=== PATIENT | male | born 1975 | race Caucasian/White ===

== ENCOUNTER 2018-01-22 17:25 | Emergency (ER) | payer BC ==
[2018-01-22] MEDS ORDERED: KETOROLAC TROMETHAMINE INJ/PF 30 MG/1 ML SDV IV ONE (17:53)
[2018-01-22] MEDS ORDERED: METHYLPREDNISOLONE INJ 125 MG/2 ML SDV IV ONE (17:53)
[2018-01-22] MEDS ORDERED: NORMAL SALINE 1000 ML 1,000 ML IV ONE (17:53)
--- NOTE | 2018-01-22 17:55 | ER Document Report ---
ED Medical Screen (RME) - General Chief Complaint: Dental Injury Stated Complaint: TOOTH PAIN Time Seen by Provider: 01/22/18 17:53 Notes: 42-year-old male patient had a left lower second molar pulled 2 days ago. He reports third molars never erupted. Since then he has had pain and swelling. He is unable to open his mouth at this time. The dentist sent him here to rule out David's angina due to his symptoms and findings in the office. I have greeted and performed a rapid initial assessment of this patient. A comprehensive ED assessment and evaluation of the patient, analysis of test results and completion of the medical decision making process will be conducted by additional ED providers. TRAVEL OUTSIDE OF THE [place] IN LAST 30 DAYS: No - Related Data Allergies/Adverse Reactions: codeine Allergy (Verified 01/22/18 17:31) Past Medical History - Social History Chew tobacco use (# tins/day): No Frequency of alcohol use: None Drug Abuse: None Renal/ Medical History: Denies: Hx Peritoneal Dialysis Physical Exam - Vital signs Vitals: Temp Pulse Resp BP Pulse Ox 97.7 F 64 18 134/91 H 99 01/22/18 17:31 01/22/18 17:31 01/22/18 17:31 01/22/18 17:31 01/22/18 17:31 Course - Vital Signs Vital signs: Temp Pulse Resp BP Pulse Ox 97.7 F 64 18 134/91 H 99 01/22/18 17:31 01/22/18 17:31 01/22/18 17:31 01/22/18 17:31 01/22/18 17:31
[2018-01-22 18:45] LABS: ABSOLUTE LYMPHOCYTES (AUTO) 1.1 10^3/uL (0.5-4.7); ABSOLUTE MONOCYTES (AUTO) 1.5 10^3/uL (0.1-1.4); BASOPHILS % (AUTO) 0.2 % (0-2); EOSINOPHILS % (AUTO) 0.1 % (0-6); HEMATOCRIT 43.4 % (37.9-51.0); HEMOGLOBIN 14.7 g/dL (13.5-17.0); LYMPHOCYTES % (AUTO) 10.6 % (13-45); MEAN CORPUSCULAR HEMOGLOBIN 27.3 pg (27.0-33.4); MEAN CORPUSCULAR HGB CONC 33.9 g/dL (32.0-36.0); MEAN CORPUSCULAR VOLUME 81 fl (80-97); MONOCYTES % (AUTO) 13.8 % (3-13); PLATELET COUNT 333 10^3/uL (150-450); RED BLOOD COUNT 5.38 10^6/uL (4.35-5.55); RED CELL DISTRIBUTION WIDTH 14.1 % (11.5-14.0); SEGMENTED NEUTROPHILS % (AUTO) 75.3 % (42-78); TOTAL CELLS COUNTED % (AUTO) 100 %; WHITE BLOOD COUNT 10.6 10^3/uL (4.0-10.5)
[2018-01-22 19:06] LABS: ALANINE AMINOTRANSFERASE 225 U/L (21-72); ALBUMIN 4.2 g/dL (3.5-5.0); ALKALINE PHOSPHATASE 213 U/L (38-126); ANION GAP 15 (5-19); ASPARTATE AMINO TRANSFERASE 80 U/L (17-59); BILIRUBIN,DIRECT 0.5 mg/dL (0.0-0.4); BILIRUBIN,TOTAL 0.6 mg/dL (0.2-1.3); BLOOD UREA NITROGEN 17 mg/dL (7-20); CALCIUM 9.4 mg/dL (8.4-10.2); CARBON DIOXIDE 25 mmol/L (22-30); CHLORIDE 99 mmol/L (98-107); GLUCOSE 127 mg/dL (75-110); POTASSIUM 4.3 mmol/L (3.6-5.0); SODIUM 139.2 mmol/L (137-145); TOTAL PROTEIN 7.4 g/dL (6.3-8.2)
--- NOTE | 2018-01-22 19:12 | ER Document Report ---
ED General - General Chief Complaint: Dental Injury Stated Complaint: TOOTH PAIN Time Seen by Provider: 01/22/18 17:53 Notes: Patient is a 42 year old male with medical history as recorded who presents with 1 week of progressively worsening pain and swelling to the left side of his face, jaw and neck. Patient states that he had a tooth extraction performed 2 days ago for an infected left mandibular molar and that the swelling and pain has actually worsened since that time. He does described as a dull, constant, throbbing pain worsened by any attempts at talking, eating or drinking. He has been taking amoxicillin that was prescribed by his dentist. He reports that when he followed up with the dentist today he was referred to the emergency department for further evaluation due to the worsening of the swelling. He denies any history of similar symptoms in the past. He denies any difficulty breathing or swallowing his oral secretions. He has no history of similar symptoms in the past. TRAVEL OUTSIDE OF THE [place] IN LAST 30 DAYS: No - Related Data Allergies/Adverse Reactions: codeine Allergy (Verified 01/22/18 17:31) Home Medications: Bystolic 5mg daily Past Medical History - General Information source: Patient - Social History Smoking Status: Never Smoker Chew tobacco use (# tins/day): No Frequency of alcohol use: None Drug Abuse: None Lives with: Spouse/Significant other Family History: Reviewed & Not Pertinent Patient has suicidal ideation: No Patient has homicidal ideation: No - Past Medical History Cardiac Medical History: Reports: Hx Hypertension Renal/ Medical History: Denies: Hx Peritoneal Dialysis Past Surgical History: Reports: Hx Abdominal Surgery - gastric bypass, Hx Orthopedic Surgery Review of Systems - Review of Systems Notes: Constitutional: Negative for fever. HENT: Positive for facial pain and swelling Eyes: Negative for visual changes. Cardiovascular: Negative for chest pain. Respiratory: Negative for shortness of breath. Gastrointestinal: Negative for abdominal pain, vomiting or diarrhea. Genitourinary: Negative for dysuria. Musculoskeletal: Negative for back pain. Skin: Negative for rash. Neurological: Negative for headaches, weakness or numbness. 10 point ROS negative except as marked above and in HPI. Physical Exam - Vital signs Vitals: Temp Pulse Resp BP Pulse Ox 97.7 F 64 18 134/91 H 99 01/22/18 17:31 01/22/18 17:31 01/22/18 17:31 01/22/18 17:31 01/22/18 17:31 Interpretation: Normal Notes: PHYSICAL EXAMINATION: GENERAL: Appears moderately uncomfortable but in no acute distress HEAD: Atraumatic, normocephalic. EYES: Pupils equal round and reactive to light, extraocular movements intact, sclera anicteric, conjunctiva are normal. ENT: nares patent, notable trismus. There is left-sided subsegmental lymphadenopathy that is tender to palpation. The soft tissues around and underneath the mandible are diffusely swollen and tender to palpation. There is no evidence of swelling to the floor of the mouth. No elevation of the tongue. No muffled voice. NECK: Normal range of motion, no cervical lymphadenopathy, no stridor LUNGS: Breath sounds clear to auscultation bilaterally and equal. No wheezes rales or rhonchi. HEART: Regular rate and rhythm without murmurs ABDOMEN: Soft, nontender, normoactive bowel sounds. No guarding, no rebound. No masses appreciated. EXTREMITIES: Normal range of motion, no pitting or edema. No cyanosis. NEUROLOGICAL: No focal neurological deficits. Moves all extremities spontaneously and on command. PSYCH: Normal mood, normal affect. SKIN: Warm, Dry, normal turgor, no rashes or lesions noted. Course - Re-evaluation Re-evalutation: 01/22/18 19:10 Patient presents with trismus, left-sided facial pain and swelling after having tooth #19 pulled 2 days ago. Patient's vitals are within normal limits he has no difficulty swallowing or secretions, no complaints of shortness of breath, no evidence of David's angina on examination although he does have significant trismus on examination. No muffled speech with talking. No clinical suspicion overall for a retropharyngeal or David's angina although given the patient's degree of trismus and is worsening despite the source of infection being pulled and antibiotics will obtain CT of the face and neck to further exclude. If this is unremarkable will recommend outpatient steroid course, antibiotics and follow-up. 01/22/18 20:37 CT does not demonstrate any evidence of an acute fluid collection to suggest an abscess or David angina. Findings are consistent with patient clinically appears to have which is postsurgical inflammation to multiple areas beneath the left mandible and affected soft tissues. I will broaden the patient's antibiotics to clindamycin, start a 5 day course of steroids, and have him follow-up with his dentist as scheduled. He is able to tolerate fluid intake and continues to be without any breathing difficulties. At this time will discharge with return precautions and follow-up recommendations. Verbal discharge instructions given a the bedside and opportunity for questions given. Medication warnings reviewed. Patient is in agreement with this plan and has verbalized understanding of return precautions and the need for primary care follow-up in the next 24-72 hours. - Vital Signs Vital signs: Temp Pulse Resp BP Pulse Ox 98.3 F 70 16 143/78 H 96 01/22/18 19:09 01/22/18 21:00 01/22/18 21:00 01/22/18 21:00 01/22/18 21:00 - Laboratory Result Diagrams: 01/22/18 18:27 01/22/18 18:27 Laboratory results interpreted by me: 01/22/18 01/22/18 18:27 18:27 WBC 10.6 H RDW 14.1 H Lymphocytes % 10.6 L Monocytes % 13.8 H Absolute Monocytes 1.5 H Glucose 127 H Direct Bilirubin 0.5 H AST 80 H ALT 225 H Alkaline Phosphatase 213 H - Diagnostic Test Radiology reviewed: Reports reviewed Discharge - Discharge Clinical Impression: Trismus, Neck pain Muscle inflammation Qualifiers: Myositis type: unspecified type Myositis location: unspecified site Qualified Code(s): M60.9 - Myositis, unspecified Condition: Good Disposition: HOME, SELF-CARE Additional Instructions: Your CT scan does not show any evidence of an abscess or the diagnosis that your dentist was concerned about. It does show significant inflammation which is what we suspected based on your history. You are being started on a course of steroids to help reduce some of the inflammation. Please discontinue amoxicillin and begin taking clindamycin for the next 10 days. This is a more broad-spectrum antibiotic and we are increasing the antibiotic coverage due to the amount of swelling that you are having. Please return if you become unable to swallow, have difficulty breathing, have persistent vomiting, or have any other symptoms that are worrisome to you. Prescriptions: Clindamycin HCl 300 mg PO TID #30 capsule Nebivolol HCl [Bystolic 5 mg Tablet] 5 mg PO DAILY #30 tablet Prednisone [Deltasone 20 mg Tablet] 3 tab PO DAILY 5 Days tablet
--- NOTE | 2018-01-22 19:38 | RADIOLOGY REPORT (SQ) ---
EXAM DESCRIPTION: CT SOFT TISSUE NECK WITH COMPLETED DATE/TIME: 01/22/2018 7:22 pm REASON FOR STUDY: Neck Mouth Swelling post L 2nd molar extraction COMPARISON: None. TECHNIQUE: Post IV contrasted scanning from skull base through lung apices with review of bone, soft tissue and lung windows. Reconstructed coronal and sagittal MPR images reviewed. All images stored on PACS. All CT scanners at this facility use dose modulation, iterative reconstruction, and/or weight based d osing when appropriate to reduce radiation dose to as low as reasonably achievable (ALARA). [facility]: Dose Right [facility]: CareDose [facility]: Dose Right [facility]: Teradose 4D [facility]: Klip.in CONTRAST TYPE AND DOSE: contrast/concentration: Isovue 370.00 mg/ml; Total Contrast Delivered: 75.0 ml; Total Saline Delivered: 55.0 ml RENAL FUNCTION: None required. The patient is less than 50 years old. RADIATION DOSE: CT Rad equipment meets quality standard of care and radiation dose reduction techniq ues were employed. CTDIvol: 16.0 mGy. DLP: 601 mGy-cm. . LIMITATIONS: None. FINDINGS: SKULL BASE: Intact. MAJOR SALIVARY GLANDS: No solid or cystic masses. No inflammatory changes. LYMPHADENOPATHY: Prominent left anterior cervical lymph nodes which are likely reactive. SOFT TISSUES: There is diffuse soft tissue stranding superficial and deep to the left mandible surrou nding site of tooth extraction with expansion of the muscles of mastication. No definite drainable f luid collection/abscess. LARYNX/CORDS: No abnormal findings. VASCULAR STRUCTURES: The major vessels are patent. LUNG APICES: Clear. BONES: Intact. THYROID: Normal size. No masses. PARANASAL SINUSES: Clear. OTHER: No other significant finding. IMPRESSION: SIGNIFICANT INFLAMMATION INVOLVING THE SOFT TISSUES SUPERFICIAL AND DEEP TO THE LEFT MAN DIBLE NEAR SITE OF TOOTH EXTRACTION WITH EXPANSION OF THE MUSCLES OF MASTICATION MAY REPRESENT COMBIN ATION OF CELLULITIS/ MYOSITIS AND/OR HEMATOMA. NO DRAINABLE FLUID COLLECTION/ ABSCESS IDENTIFIED. TECHNICAL DOCUMENTATION: JOB ID: [id number] Quality ID # [id number]: Final reports with documentation of one or more dose reduction techniques (e.g., Au tomated exposure control, adjustment of the mA and/or kV according to patient size, use of iterative reconstruction technique) 2010 [employer]- All Rights Reserved Reading location - IP/workstation name: [facility]
[2018-01-22] MEDS ORDERED: ONDANSETRON ODT 4 MG TAB (6 TAB/ER DISP) PO PRN (20:40)
[2018-01-22] MEDS ORDERED: CLINDAMYCIN HCL 150 MG CAPSULE PO ONE (20:40)
[2018-01-22] MEDS ORDERED: HYDROCODONE/ACETAMINOPHEN 5-325 MG (6 TAB/ER DISP) PO PRN (20:40)
[2018-01-22 21:11] VITALS: BP 143/78
== END 2018-01-22 21:11 | disposition home or self-care (01) ==
LOC: ER 17:25
DX: M60.9 Myositis, unspecified (principal); R25.2 Cramp and spasm; M54.2 Cervicalgia; I10 Essential (primary) hypertension; Z79.899 Other long term (current) drug therapy; Z98.890 Other specified postprocedural states; Z88.5 Allergy status to narcotic agent; Z98.84 Bariatric surgery status
CPT/HCPCS: 99284; 96361; 96374; 96375; 36415; 85025; 80053; 70491; J2930; J1885; J7030

== ENCOUNTER 2018-01-25 10:36 | Emergency (ER) | payer BC ==
[2018-01-25] MEDS ORDERED: MORPHINE SULFATE 10 MG/ML INJ IV ONE (11:03)
[2018-01-25] MEDS ORDERED: DIPHENHYDRAMINE HCL 50 MG/ML VIAL IV ONE (11:04)
[2018-01-25] MEDS ORDERED: METHYLPREDNISOLONE INJ 125 MG/2 ML SDV IV ONE (11:04)
[2018-01-25] MEDS ORDERED: PIPERACILLIN/TAZOBACTAM 3.375 GM VIAL IV ONE (11:06)
[2018-01-25] MEDS ORDERED: CEFAZOLIN 2 GM/D5W RTU 2 GM/50 ML RTUPB IV ONE (11:06)
--- NOTE | 2018-01-25 11:15 | ER Document Report ---
ED Medical Screen (RME) - General Chief Complaint: Mouth Problem Stated Complaint: DIFFICULTY BREATHING Time Seen by Provider: 01/25/18 11:01 Mode of Arrival: Ambulatory Information source: Patient, Parent TRAVEL OUTSIDE OF THE [place] IN LAST 30 DAYS: No - HPI Notes: 01/25/18 11:09 42 yr old male presents today for acute swelling, jaw pain on the left side after he had his left lower tooth extracted on 01/20/18, was placed on augmentin and then returned on Thursday night on 01/22/[address] of soft tissue neck pt is taking oral antibiotics and oral steroids. Reports symptoms are progressivly worse. reports trismus, but denies difficulty to swallowing. Pt is not drinking and eating well due to pain and swelling of left side of neck. denies any fevers or chills. denies any cp, sob, n/v/d. I have greeted and performed a rapid initial assessment of this patient. A comprehensive ED assessment and evaluation of the patient, analysis of test results and completion of medical decision making process will be conducted by an additional ED providers. - Related Data Allergies/Adverse Reactions: codeine Allergy (Verified 01/25/18 10:37) Past Medical History - Social History Frequency of alcohol use: None Drug Abuse: None - Past Medical History Cardiac Medical History: Reports: Hx Hypertension Renal/ Medical History: Denies: Hx Peritoneal Dialysis Past Surgical History: Reports: Hx Abdominal Surgery - gastric bypass, Hx Orthopedic Surgery Physical Exam - Vital signs Vitals: Temp Pulse Resp BP Pulse Ox 97.9 F 50 L 16 155/82 H 97 01/25/18 10:52 01/25/18 10:52 01/25/18 10:52 01/25/18 10:52 01/25/18 10:52 - HEENT Neck: Lymphadenopathy, Neck mass Notes: noted trismus. tongue midline. - Respiratory Respiratory status: No respiratory distress Chest status: Nontender Breath sounds: Normal Chest palpation: Normal - Cardiovascular Rhythm: Regular Heart sounds: Normal auscultation Murmur: No Normal capillary refill: Yes - Skin Skin Temperature: Warm Skin Moisture: Dry Skin Color: Normal Course - Vital Signs Vital signs: Temp Pulse Resp BP Pulse Ox 97.9 F 50 L 16 155/82 H 97 01/25/18 10:52 01/25/18 10:52 01/25/18 10:52 01/25/18 10:52 01/25/18 10:52
[2018-01-25 12:21] LABS: ABSOLUTE LYMPHOCYTES (AUTO) 0.8 10^3/uL (0.5-4.7); ABSOLUTE MONOCYTES (AUTO) 1.4 10^3/uL (0.1-1.4); ABSOLUTE NEUT (AUTO) 11.9 10^3/uL (1.7-8.2); BASOPHILS % (AUTO) 0.1 % (0-2); HEMATOCRIT 44.2 % (37.9-51.0); HEMOGLOBIN 14.4 g/dL (13.5-17.0); LYMPHOCYTES % (AUTO) 5.3 % (13-45); MEAN CORPUSCULAR HEMOGLOBIN 26.6 pg (27.0-33.4); MEAN CORPUSCULAR HGB CONC 32.6 g/dL (32.0-36.0); MEAN CORPUSCULAR VOLUME 81 fl (80-97); MONOCYTES % (AUTO) 9.9 % (3-13); PLATELET COUNT 473 10^3/uL (150-450); RED BLOOD COUNT 5.43 10^6/uL (4.35-5.55); SEGMENTED NEUTROPHILS % (AUTO) 84.7 % (42-78); TOTAL CELLS COUNTED % (AUTO) 100 %; WHITE BLOOD COUNT 14.1 10^3/uL (4.0-10.5)
[2018-01-25 12:47] LABS: ALANINE AMINOTRANSFERASE 284 U/L (21-72); ALBUMIN 4.2 g/dL (3.5-5.0); ALKALINE PHOSPHATASE 177 U/L (38-126); ANION GAP 11 (5-19); ASPARTATE AMINO TRANSFERASE 227 U/L (17-59); BILIRUBIN,DIRECT 0.2 mg/dL (0.0-0.4); BILIRUBIN,TOTAL 0.4 mg/dL (0.2-1.3); BLOOD UREA NITROGEN 25 mg/dL (7-20); C-REACTIVE PROTEIN 23.4 mg/L (<10.0); CALCIUM 9.4 mg/dL (8.4-10.2); CARBON DIOXIDE 30 mmol/L (22-30); CHLORIDE 98 mmol/L (98-107); GLUCOSE 153 mg/dL (75-110); POTASSIUM 5.1 mmol/L (3.6-5.0); SODIUM 138.6 mmol/L (137-145); TOTAL PROTEIN 7.3 g/dL (6.3-8.2)
--- NOTE | 2018-01-25 12:57 | RADIOLOGY REPORT (SQ) ---
EXAM DESCRIPTION: CT SOFT TISSUE NECK WITH COMPLETED DATE/TIME: 01/25/2018 12:38 pm REASON FOR STUDY: left sided neck swelling s/p extraction COMPARISON: 01/22/2018. TECHNIQUE: Post IV contrasted scanning from skull base through lung apices with review of bone, soft tissue and lung windows. Reconstructed coronal and sagittal MPR images reviewed. All images stored on PACS. All CT scanners at this facility use dose modulation, iterative reconstruction, and/or weight based d osing when appropriate to reduce radiation dose to as low as reasonably achievable (ALARA). [facility]: Dose Right [facility]: CareDose [facility]: Dose Right [facility]: Teradose 4D [facility]: [employer]Media CONTRAST TYPE AND DOSE: contrast/concentration: Isovue 370.00 mg/ml; Total Contrast Delivered: 75.0 ml; Total Saline Delivered: 55.0 ml RENAL FUNCTION: BUN 17 creatinine 0.5. RADIATION DOSE: CT Rad equipment meets quality standard of care and radiation dose reduction techniq ues were employed. CTDIvol: 15.6 mGy. DLP: 577 mGy-cm. . LIMITATIONS: None. FINDINGS: SKULL BASE: Intact. MAJOR SALIVARY GLANDS: No solid or cystic masses. No inflammatory changes. LYMPHADENOPATHY: Left side cervical adenopathy. MUCOSAL MASSES OR ASYMMETRY: No mucosal masses or asymmetry. LARYNX/CORDS: No abnormal findings. VASCULAR STRUCTURES: The major vessels are patent. LUNG APICES: Clear. BONES: Intact. THYROID: Normal size. No masses. PARANASAL SINUSES: Clear. OTHER: Again seen is asymmetry and fullness involving the left muscles of mastication, particularly t he medial pterygoid muscle. Faint decreased attenuation centrally but no focal fluid collection. IMPRESSION: AGAIN SEEN IS INFLAMMATION AND FULLNESS INVOLVING THE SOFT TISSUES DEEP TO THE LEFT DANA IBLE. NO CLEAR-CUT ABSCESS AT THIS TIME. LEFT-SIDED CERVICAL ADENOPATHY. TECHNICAL DOCUMENTATION: JOB ID: [id number] Quality ID # [id number]: Final reports with documentation of one or more dose reduction techniques (e.g., Au tomated exposure control, adjustment of the mA and/or kV according to patient size, use of iterative reconstruction technique) 2010 [employer]- All Rights Reserved Reading location - IP/workstation name: [facility]
[2018-01-25] MEDS ORDERED: FENTANYL CITRATE INJ/PF 100 MCG/2 ML AMPUL IV ONE (13:09)
[2018-01-25] MEDS ORDERED: NORMAL SALINE 1000 ML 1,000 ML IV ONE (13:34)
[2018-01-25] MEDS ORDERED: AMPICILLIN SOD/SULBACTAM 3 GM VIAL IV ONE (13:50)
--- NOTE | 2018-01-25 13:51 | ER Document Report ---
ED General - General Chief Complaint: Mouth Problem Stated Complaint: DIFFICULTY BREATHING Time Seen by Provider: 01/25/18 11:01 Mode of Arrival: Ambulatory Information source: Patient Notes: 42-year-old male presents with complaints of dental pain. Patient notes symptoms have been ongoing for approximately a week now, she he states that he had a dental infection was started on amoxicillin by his dentist had his tooth pulled and and the swelling worsened. Patient notes that he went to visit with the dentist who is concerned about David's angina and sent the patient in for evaluation here, a CT was performed no abscess was noted. Patient was discharged home at that time with clindamycin and steroids. Patient notes he has not been able to eat however open his mouth due to the pain. TRAVEL OUTSIDE OF THE [place] IN LAST 30 DAYS: No - HPI Onset: Last week Onset/Duration: Persistent Quality of pain: Sharp Severity: Moderate Pain Level: 4 Associated symptoms: Other Exacerbated by: Food Relieved by: Denies Similar symptoms previously: Yes Recently seen / treated by doctor: Yes - Related Data Allergies/Adverse Reactions: codeine Allergy (Verified 01/25/18 10:37) Past Medical History - General Information source: Patient, Parent - Social History Smoking Status: Never Smoker Cigarette use (# per day): No Chew tobacco use (# tins/day): No Smoking Education Provided: No Frequency of alcohol use: None Drug Abuse: None Family History: Reviewed & Not Pertinent Patient has suicidal ideation: No Patient has homicidal ideation: No - Past Medical History Cardiac Medical History: Reports: Hx Hypertension Renal/ Medical History: Denies: Hx Peritoneal Dialysis Past Surgical History: Reports: Hx Abdominal Surgery - gastric bypass, Hx Orthopedic Surgery Review of Systems - Review of Systems Notes: REVIEW OF SYSTEMS: CONSTITUTIONAL : Denies fever, chills, or sweats. Denies recent illness. EENT: Admits to dental pain CARDIOVASCULAR: Denies chest pain. Denies palpitations or racing or irregular heart beat. Denies ankle edema. RESPIRATORY: Denies cough, cold, or chest congestion. Denies shortness of breath, difficulty breathing, or wheezing. GASTROINTESTINAL: Denies abdominal pain or distention. Denies nausea, vomiting , or diarrhea. Denies blood in vomitus, stools, or per rectum. Denies black, tarry stools. Denies constipation. GENITOURINARY: Denies difficulty urinating, painful urination, burning, frequency, blood in urine, or discharge. MUSCULOSKELETAL: Denies back or neck pain or stiffness. Denies joint pain or swelling. SKIN: Denies rash, lesions or sores. HEMATOLOGIC : Denies easy bruising or bleeding. LYMPHATIC: Denies swollen, enlarged glands. NEUROLOGICAL: Denies confusion or altered mental status. Denies passing out or loss of consciousness. Denies dizziness or lightheadedness. Denies headache. Denies weakness or paralysis or loss of use of either side. Denies problems with gait or speech. Denies sensory loss, numbness, or tingling. Denies seizures. PSYCHIATRIC: Denies anxiety or stress. Denies depression, suicidal ideation, or homicidal ideation. ALL OTHER SYSTEMS REVIEWED AND NEGATIVE. Dictation was performed using [employer] voice recognition software PHYSICAL EXAMINATION: GENERAL: Well-appearing, well-nourished and in no acute distress. HEAD: Atraumatic, normocephalic. EYES: Pupils equal round and reactive to light, extraocular movements intact, sclera anicteric, conjunctiva are normal. ENT: Trismus noted mild edema of the left There is anterior cervical adenopathy noted NECK: Normal range of motion, LUNGS: Breath sounds clear to auscultation bilaterally and equal. No wheezes rales or rhonchi. HEART: Regular rate and rhythm without murmurs ABDOMEN: Soft, nontender, nondistended abdomen. No guarding, no rebound. No masses appreciated. Musculoskeletal: Normal range of motion, no pitting or edema. No cyanosis. NEUROLOGICAL: Cranial nerves grossly intact. Normal speech, normal gait. Normal sensory, motor exams PSYCH: Normal mood, normal affect. SKIN: Warm, Dry, normal turgor, no rashes or lesions noted. Physical Exam - Vital signs Vitals: Temp Pulse Resp BP Pulse Ox 97.9 F 50 L 16 155/82 H 97 01/25/18 10:52 01/25/18 10:52 01/25/18 10:52 01/25/18 10:52 01/25/18 10:52 Course - Re-evaluation Re-evalutation: Patient overall looks well, vital signs are stable, he does appear to be in pain and has been given multiple doses of pain medication in the emergency department, CT was performed which is noted to have no abscess however the medial r pterygoid is noted to be swollen 04/16/18 13:[address] Livingston , he requests unasyn 3mg, taper of prednisone for 10 days,, augmentin for home and follow up 1300 on I explained the patient CT findings and lab results to him he understands that this is the reason why he cannot open his mouth. 01/25/18 15:58 Patient otherwise is stable, he will be given further pain control and will be discharged to follow-up with ENT as there is no airway compromise at this time After performing a Medical Screening Examination, I estimate there is LOW risk for CENTRAL CORD SYNDROME, LUDWIGS ANGINA, PERITONSILLAR ABSCESS, RETROPHARYNGEAL ABSCESS, EPIDURAL MASS LESION, SEVERE SPINAL STENOSIS, ARTERIAL DISSECTION, MENINGITIS, or ACUTE CORONARY SYNDROME, thus I consider the discharge disposition reasonable. I have reevaluated this patient multiple times and no significant life threatening changes are noted. The patient and I have discussed the diagnosis and risks, and we agree with discharging home to follow-up on an outpatient basis with the understanding that symptoms and presentations can change. We also discussed returning to the Emergency Department immediately if new or worsening symptoms occur. We have discussed the symptoms which are most concerning (e.g., saddle anesthesia, urinary or bowel incontinence or retention, changing or worsening pain) that necessitate immediate return. - Vital Signs Vital signs: Temp Pulse Resp BP Pulse Ox 97.9 F 50 L 16 155/82 H 97 01/25/18 10:52 01/25/18 10:52 01/25/18 10:52 01/25/18 10:52 01/25/18 10:52 - Laboratory Result Diagrams: 01/25/18 12:04 01/25/18 12:04 Laboratory results interpreted by me: 01/25/18 01/25/18 12:04 12:04 WBC 14.1 H MCH 26.6 L Plt Count 473 H Seg Neutrophils % 84.7 H Lymphocytes % 5.3 L Absolute Neutrophils 11.9 H Potassium 5.1 H BUN 25 H Glucose 153 H AST 227 H ALT 284 H Alkaline Phosphatase 177 H C-Reactive Protein 23.4 H - Diagnostic Test Radiology reviewed: Image reviewed - Soft tissue swelling noted on CT soft tissue neck otherwise no abscess, Reports reviewed Discharge - Discharge Clinical Impression: Trismus, Neck pain Muscle inflammation Qualifiers: Myositis type: infective Myositis location: other site Qualified Code(s): M60.08 - Infective myositis, other site Condition: Stable Disposition: HOME, SELF-CARE Additional Instructions: Please stop the clindamycin that was written for you, please take the Augmentin that was previously prescribed. Please continue the longer course of steroids, please return immediately if symptoms worsen or any other concerns Prescriptions: Oxycodone HCl/Acetaminophen [Percocet 5-325 mg Tablet] 1 - 2 tab PO Q4H PRN #25 tablet PRN Reason: Prednisone [Deltasone 20 mg Tablet] 3 tab PO DAILY 5 Days tablet Referrals: MARJAN LIVINGSTON DO [ASSOCIATE] - 01/28/18 1:00 pm
[2018-01-25] MEDS ORDERED: HYDROMORPHONE HCL INJ/PF 2 MG/ML AMPULE IV ONE (14:28)
[2018-01-25 16:08] VITALS: BP 138/75
== END 2018-01-25 16:03 | disposition home or self-care (01) ==
LOC: ER 10:36
DX: R25.2 Cramp and spasm (principal); M54.2 Cervicalgia; M60.08 Infective myositis, other site; R06.00 Dyspnea, unspecified; K08.9 Disorder of teeth and supporting structures, unspecified; I10 Essential (primary) hypertension; Z88.6 Allergy status to analgesic agent; Z98.84 Bariatric surgery status
CPT/HCPCS: 99284; 96375; 96365; 36415; 87040; 83605; 85025; 86140; 80053; 70491; J1200; J3010; J0295; J2930; J1170; J7030